=== PATIENT | male | born 1970 | race American Indian/Alaskan Native ===

== ENCOUNTER 2018-03-17 04:38 | Emergency (ER) | payer MEDICAID ==
[2018-03-17 04:43] VITALS: TEMP 98.9
--- NOTE | 2018-03-17 05:10 | ED PDOC ---
HPI: Chest Pain Time Seen by Provider: 03/17/18 04:48 Chief Complaint (Nursing): Rib Injury Chief Complaint (Provider): Rib Injury History Per: Patient History/Exam Limitations: no limitations Onset/Duration Of Symptoms: Days (x3) Current Symptoms Are (Timing): Still Present Additional Complaint(s): 47 year old male with a history of seizure disorder, COPD, and polysubstance abuse presents to the ED with left sided rib pain after fall 3 days ago. Patient reports pain began after he fell s/p seizure. He was prescribed medications but his won't cover the costs. Patient denies any other medical complaints. PMD: none provided Past Medical History Reviewed: Historical Data, Nursing Documentation, Vital Signs Vital Signs: Last Vital Signs Temp 98.9 F 03/17/18 04:40 Pulse 90 03/17/18 04:40 Resp 16 03/17/18 04:40 BP 120/79 03/17/18 04:40 Pulse Ox 100 03/17/18 06:45 - Medical History PMH: Anemia, Anxiety, Arthritis (BACK), Asthma, Back Problems, Bipolar Disorder , Depression, Schizophrenia Denies: Diabetes, Hepatitis, HIV, HTN, Chronic Kidney Disease, Seizures, Sexually Transmitted Disease - Family History Family History: States: Unknown Family Hx - Immunization History Hx Tetanus Toxoid Vaccination: No Hx Influenza Vaccination: No Hx Pneumococcal Vaccination: No - Home Medications Home Medications: Ambulatory Orders Medication Instructions Recorded ALPRAZolam [Xanax] 1 mg PO DAILY 02/02/17 Cyclobenzaprine [Flexeril] 10 mg PO DAILY 02/02/17 Lamictal 50 mg PO DAILY 02/02/17 SEROquel 400 mg PO DAILY 02/02/17 hydrOXYzine Pamoate [Vistaril] 25 mg PO DAILY 02/02/17 Azithromycin [Zithromax] 500 mg PO Q24H 3 Days tab 12/19/17 Methylprednisolone [Medrol Dose 4 mg PO Q8 #21 mg 12/19/17 Pack (21 tabs)] Ibuprofen [Motrin Tab] 600 mg PO Q6 #30 tab 03/17/18 - Allergies Allergies/Adverse Reactions: Allergies Allergy/AdvReac Type Severity Reaction Status Date / Time Penicillins Allergy Verified 12/16/17 05:15 Review of Systems ROS Statement: Except As Marked, All Systems Reviewed And Found Negative Cardiovascular: Positive for: Other (left sided rib pain) Physical Exam - Reviewed Nursing Documentation Reviewed: Yes Vital Signs Reviewed: Yes - Physical Exam Appears: Positive for: Non-toxic, No Acute Distress Head Exam: Positive for: ATRAUMATIC, NORMOCEPHALIC Skin: Positive for: Normal Color, Warm, Dry Eye Exam: Positive for: EOMI, Normal appearance, PERRL Neck: Positive for: Normal, Painless ROM Cardiovascular/Chest: Positive for: Regular Rate, Rhythm, Other (Tenderness to palpation to left 4-6 rib, no step off, no crepitus, no bruising, no ecchymosis , no swelling). Negative for: Murmur Respiratory: Positive for: Normal Breath Sounds. Negative for: Respiratory Distress Gastrointestinal/Abdominal: Positive for: Normal Exam, Soft. Negative for: Tenderness Extremity: Positive for: Normal ROM (upper and lower) Neurologic/Psych: Positive for: Alert, Oriented (x3) - ECG O2 Sat by Pulse Oximetry: 100 (RA) Pulse Ox Interpretation: Normal Medical Decision Making Medical Decision Making: Time: 4:52 Assessment: 47 year old male with a history of seizure disorder, COPD, and polysubstance abuse presenting with rib pain after fall 3 days ago. No objective findings of rib fracture. Of note, [facility] searched, patient had 120 tabs of Tramadol prescribed and 60 tabs of Endocet 10-325 mg prescribed on 5th that was filled on the 10th of this month. Patient may be suffering from rib contusion will do XR and give NSAID for pain relief Initial Plan: --Ribs XR --Toradol 30 mg IM Time: 6:39 Ribs XR: FINDINGS: Lungs: Unremarkable. No consolidation. Pleural space: Unremarkable. No pneumothorax. Heart: Unremarkable. No cardiomegaly. Mediastinum: Unremarkable. Bones/joints: Displaced left lateral sixth and seventh rib fractures. IMPRESSION: Displaced left lateral sixth and seventh rib fractures. Time: 6:41 --Patient medically cleared for discharge home. Diagnosis rib fractures, which patient was previously aware of. Patient given care instructions and advised to followup with PMD in 1-2 days. Patient states he lost his incentive spirometer, another was provided and instructions given by benefits technician. Scribe Attestation: Documented by Mally Herrera, acting as a scribe for Murali Chiu MD Provider Scribe Attestation: All medical record entries made by the Scribe were at my direction and personally dictated by me. I have reviewed the chart and agree that the record accurately reflects my personal performance of the history, physical exam, medical decision making, and the department course for this patient. I have also personally directed, reviewed, and agree with the discharge instructions and disposition. Disposition - Clinical Impression Clinical Impression: Rib fractures - Disposition Referrals: Enoc NAVARRO,Miguel Iraheta MD [Non-Staff] - Disposition: Routine/Home Disposition Time: 06:41 Condition: STABLE Prescriptions: Ibuprofen [Motrin Tab] 600 mg PO Q6 #30 tab Instructions: Rib Fracture (DC), How to Use an Incentive Spirometer Forms: [employer] (Cuban)
[2018-03-17 06:54] VITALS: BP 110/65; PULSE 70; RESP 15; O2SAT 98
--- NOTE | 2018-03-17 13:31 | RAD ---
Date of service: 03/17/2018 PROCEDURE: Radiographs of the Chest and Left Ribs. HISTORY: rib pain after fall 3 day sago COMPARISON: None available. TECHNIQUE: Frontal radiograph of the chest and multiple oblique radiographs of the left ribs were obtained. FINDINGS: LEFT RIBS: Mildly displaced fractures of the left 5th through 7th ribs laterally. No other fracture. LUNGS: Clear. PLEURA: No pneumothorax or pleural fluid. CARDIOVASCULAR: Normal sized heart. No pulmonary vascular congestion. OTHER FINDINGS: None. IMPRESSION: Mildly displaced left 5th through 7th rib fractures laterally. No pneumothorax.
== END 2018-03-17 07:00 | disposition home or self-care (01) ==
LOC: H.ER 04:38
DX: S22.42XA Multiple fractures of ribs, left side, initial encounter for closed fracture (principal); Z86.59 Personal history of other mental and behavioral disorders; G40.909 Epilepsy, unspecified, not intractable, without status epilepticus; J44.9 Chronic obstructive pulmonary disease, unspecified; Z88.0 Allergy status to penicillin; W19.XXXA Unspecified fall, initial encounter
CPT/HCPCS: 71101; 96372; 99283; J1885